=== PATIENT | male | born 1955 | race Caucasian/White ===

== ENCOUNTER 2021-10-02 11:19 | Inpatient (IN) | payer OTHER ==
[~2021-10-02] VITALS: Ht 162.6 cm; Wt 81.0 kg
[2021-10-02 13:09] LABS: HEMOGLOBIN 12.4 gm/dl (14.0-17.5); RED BLOOD COUNT 4.19 M/UL (4.20-5.50); WHITE BLOOD COUNT 8.3 K/UL (4.5-11.0)
[2021-10-02 13:59] LABS: BUN/CREATININE RATIO 15 (0-10)
[2021-10-03 01:41] LABS: BORDETELLA PARAPERTUSSIS Not Detected (Not Detectd); BORDETELLA PERTUSSIS Not Detected (Not Detectd); CHLAMYDIA PNEUMONIAE Not Detected (Not Detectd); CORONAVIRUS HKU1 Not Detected (Not Detectd); CORONAVIRUS NL63 Not Detected (Not Detectd); CORONAVIRUS OC43 Not Detected (Not Detectd); CORONOAVIRUS 229E Not Detected (Not Detectd); HUMAN METAPNEUMOVIRUS Not Detected (Not Detectd); HUMAN RHINOVIRUS/ENTEROVIRUS Not Detected (Not Detectd); INFLUENZA A Not Detected (Not Detectd); INFLUENZA B Not Detected (Not Detectd); MYCOPLASMA PNEUMONIAE Not Detected (Not Detectd); PARAINFLUENZA VIRUS 1 Not Detected (Not Detectd); PARAINFLUENZA VIRUS 2 Not Detected (Not Detectd); PARAINFLUENZA VIRUS 3 Not Detected (Not Detectd); PARAINFLUENZA VIRUS 4 Not Detected (Not Detectd); RESPIRATORY SYNCYTIAL VIRUS Not Detected (Not Detectd)
[2021-10-03 03:13] LABS: SARS-CoV-2 NOT DETECTED (Not Detectd)
[2021-10-03 03:51] LABS: HEMOGLOBIN 11.9 gm/dl (14.0-17.5); RED BLOOD COUNT 4.07 M/UL (4.20-5.50); WHITE BLOOD COUNT 6.6 K/UL (4.5-11.0)
[2021-10-03 04:21] LABS: BUN/CREATININE RATIO 27 (0-10)
[2021-10-03] MEDS ORDERED: HYDROCHLOROTHIA25 MG PO (15:03)
[2021-10-03] MEDS ORDERED: WELLBUTRIN SR150 MG PO (15:03)
[2021-10-03] MEDS ORDERED: IPRAT-ALBUT 0.5-3 ML INH (15:04)
[2021-10-03] MEDS ORDERED: ATORVASTATIN CA20 MG PO (15:05)
[2021-10-03] MEDS ORDERED: ASPIRIN EC81 MG PO (15:05)
[2021-10-03] MEDS ORDERED: OMEPRAZOLE40 MG PO (15:06)
[2021-10-03] MEDS ORDERED: DALIRESP500 MCG PO (15:06)
[2021-10-03] MEDS ORDERED: PAROXETINE HCL10 MG PO (15:07)
[2021-10-03] MEDS ORDERED: MONTELUKAST SOD10 MG PO (15:07)
[2021-10-03] MEDS ORDERED: VITAMIN D350 MC3 PO (15:07)
[2021-10-03] MEDS ORDERED: LASIX20 MG PO (15:09)
[2021-10-03] MEDS ORDERED: FLOMAX 0.4 MG0.4 MG PO (15:09)
[2021-10-03] MEDS ORDERED: MELATONIN3 MG PO (15:10)
[2021-10-03] MEDS ORDERED: FEXOFENADINE H180 MG PO (15:10)
[2021-10-03] MEDS ORDERED: BREO ELLIPTA 11 EACH INH (15:11)
--- NOTE | 2021-10-03 15:48 | NUR ---
PT STRAIGHT CATHED PER MD ORDER AND STERILE TECHNIQUE TOLERATED WELL. PT HAD 650 OF CLEAR YELLOW URINE OUT. NOTIFIED DR DENT OF FINDINGS.
[2021-10-04 01:48] LABS: HEMOGLOBIN 11.6 gm/dl (14.0-17.5); RED BLOOD COUNT 3.86 M/UL (4.20-5.50)
[2021-10-04 02:27] LABS: BUN/CREATININE RATIO 37 (0-10)
[2021-10-05 01:54] LABS: RED BLOOD COUNT 3.79 M/UL (4.20-5.50); WHITE BLOOD COUNT 8.6 K/UL (4.5-11.0)
[2021-10-05 02:11] LABS: BUN/CREATININE RATIO 41 (0-10)
[2021-10-06 02:00] LABS: RED BLOOD COUNT 3.81 M/UL (4.20-5.50); WHITE BLOOD COUNT 7.9 K/UL (4.5-11.0)
[2021-10-06 02:22] LABS: BUN/CREATININE RATIO 44 (0-10)
[2021-10-07] MEDS ORDERED: TOPROL XL25 MG PO (09:17)
[2021-10-07] MEDS ORDERED: PREDNISONE 20 M20 MG PO (09:17)
[2021-10-07] MEDS ORDERED: DIAMOX 250 MG250 MG PO (09:17)
[2021-10-07] MEDS ORDERED: POLYETHYLENE GL17 GM PO (09:17)
== END 2021-10-07 14:38 | disposition home or self-care (01) | DRG 193 ==
LOC: ER1 11:19 → CDU 22:20 → PROG CARE 22:20
PROVIDERS: Internal Medicine; Internal Medicine Pulmonary Disease; Physician Assistant; ADMIT Internal Medicine
DX: J18.9 Pneumonia, unspecified organism (principal); J96.21 Acute and chronic respiratory failure with hypoxia; J96.22 Acute and chronic respiratory failure with hypercapnia; Z20.822 Contact with and (suspected) exposure to COVID-19; J44.1 Chronic obstructive pulmonary disease with (acute) exacerbation; J44.0 Chronic obstructive pulmonary disease with (acute) lower respiratory infection; E66.9 Obesity, unspecified; G47.33 Obstructive sleep apnea (adult) (pediatric); R73.9 Hyperglycemia, unspecified; T38.0X5A Adverse effect of glucocorticoids and synthetic analogues, initial encounter; I10 Essential (primary) hypertension; E86.0 Dehydration; R00.0 Tachycardia, unspecified; F41.9 Anxiety disorder, unspecified; Z99.81 Dependence on supplemental oxygen; Z79.01 Long term (current) use of anticoagulants; Z79.82 Long term (current) use of aspirin; Z89.029 Acquired absence of unspecified finger(s); Z82.49 Family history of ischemic heart disease and other diseases of the circulatory system; Z87.891 Personal history of nicotine dependence
CPT/HCPCS: 0240U; 36415; 36600; 71045; 74018; 80048; 80053; 82550; 82553; 82803; 83605; 83615; 83735; 83880; 84100; 84484; 85025; 85379; 85384; 86140; 87081; 87633; 94640; 94660; 94664; 94760; 94762; 96374; 96375; 99285; G0378; J0456; J0696; J1100; J1650; J2060; J2405; J2920; J7030